=== PATIENT | male | born 1975 ===

== ENCOUNTER → 2022-02-03 | Outpatient (CLI) | payer OTHER | END | disposition home or self-care (01) | LOC: RADPV 08:24 → EDUNIT# 09:00 | PROVIDERS: ATTEND Family Medicine | DX: I34.0 Nonrheumatic mitral (valve) insufficiency (principal); I51.7 Cardiomegaly; I25.3 Aneurysm of heart; R94.31 Abnormal electrocardiogram [ECG] [EKG] | CPT/HCPCS: 93306 ==

== ENCOUNTER → 2022-07-28 | Outpatient (CLI) | payer OTHER ==
[~2022-07-28] VITALS: Ht 190.5 cm; Wt 96.0 kg
[~2022-07-28] MED LIST: ACET-2247 PO; NITR0.4T52 SL
[2022-07-28 14:55] VITALS: BP 106/81
== END | disposition home or self-care (01) ==
LOC: SRCNTR 14:54
PROVIDERS: ATTEND Internal Medicine
DX: Z09 Encounter for follow-up examination after completed treatment for conditions other than malignant neoplasm (principal); R94.31 Abnormal electrocardiogram [ECG] [EKG]; R07.89 Other chest pain; R00.2 Palpitations; I31.9 Disease of pericardium, unspecified
CPT/HCPCS: G0463; Z7500